=== PATIENT | male | born 1945 | race Caucasian/White ===

== ENCOUNTER 2017-10-14 09:24 | Inpatient (IN) | payer OTHER, MEDICAID ==
[2017-10-14 12:20] LABS: ADD MAN DIFF? NO
[2017-10-14 12:22] LABS: ABNORMAL IP MESSAGE 1; BASOPHIL # 0.1 10^3/ul (0.0-0.1); BASOPHILS % 0.5 % (0.0-2.0); EOSINOPHILS # 0.1 10^3/ul (0.0-0.5); EOSINOPHILS % 0.4 % (0.0-7.0); HEMATOCRIT 38.9 % (42.0-52.0); HEMOGLOBIN 12.4 g/dl (14.0-18.0); LYMPHOCYTES # 0.8 10^3/ul (0.8-2.9); LYMPHOCYTES % 3.3 % (15.0-51.0); MEAN CORPUSCULAR HEMOGLOBIN 26.1 pg (29.0-33.0); MEAN CORPUSCULAR HGB CONC 31.9 g/dl (32.0-37.0); MEAN CORPUSCULAR VOLUME 81.7 fl (82.0-101.0); MEAN PLATELET VOLUME 9.2 fl (7.4-10.4); MONOCYTE # 1.4 10^3/ul (0.3-0.9); MONOCYTES % 5.7 % (0.0-11.0); NEUTROPHIL # 20.9 10^3/ul (1.6-7.5); NEUTROPHILS % 86.3 % (39.0-77.0); PLATELET COUNT 609 10^3/UL (140-415); POSITIVE DIFF @See below; RED BLOOD COUNT 4.76 10^6/ul (4.70-6.10); RED CELL DISTRIBUTION WIDTH 15.1 % (11.5-14.5)
[2017-10-14 12:22] LABS: WHITE BLOOD COUNT 24.2 10^3/ul (4.8-10.8)
[2017-10-14] MEDS: HYDROmorphONE 1 MG/ML SYG IV ×3 (12:33→16:09)
[2017-10-14] MEDS: SOD CHLORIDE 0.9% 1,000 ML IV (12:33)
[2017-10-14 12:46] LABS: ALANINE AMINOTRANSFERASE 42 IU/L (13-69); ALBUMIN 2.8 g/dl (3.3-4.9); ALBUMIN/GLOBULIN RATIO 0.71; ALKALINE PHOSPHATASE 172 IU/L (42-121); ANION GAP 13 (8-16); ASPARTATE AMINO TRANSFERASE 85 IU/L (15-46); BILIRUBIN,INDIRECT 0.1 mg/dl (0-1.1); BILIRUBIN,TOTAL 0.1 mg/dl (0.2-1.3); BLOOD UREA NITROGEN 19 mg/dl (7-20); CALCIUM 8.9 mg/dl (8.4-10.2); CARBON DIOXIDE 29 mmol/L (21-31); CHLORIDE 93 mmol/L (97-110); CREATININE 1.23 mg/dl (0.61-1.24); GLUCOSE 169 mg/dl (70-220); LIPASE 22 U/L (23-300); POTASSIUM 5.4 mmol/L (3.5-5.1); SODIUM 130 mmol/L (135-144); TOTAL PROTEIN 6.7 g/dl (6.1-8.1)
[2017-10-14 13:02] LABS: ADD UMIC YES; UR ASCORBIC ACID 40 mg/dL (NEGATIVE); UR BILIRUBIN (Dip) NEGATIVE (NEGATIVE); UR BLOOD (Dip) NEGATIVE (NEGATIVE); UR CLARITY SLIGHTLY CLOUDY (CLEAR); UR COLOR AMBER (YELLOW); UR GLUCOSE (Dip) NEGATIVE (NEGATIVE); UR KETONES (Dip) NEGATIVE (NEGATIVE); UR LEUKOCYTE ESTERASE (Dip) NEGATIVE Leu/ul (NEGATIVE); UR MUCUS FEW /HPF (NONE SEEN); UR NITRITE (Dip) NEGATIVE (NEGATIVE); UR RBC 3 /HPF (0-5); UR SPECIFIC GRAVITY (Dip) 1.023 (1.003-1.030); UR TOTAL PROTEIN (Dip) 1+ mg/dl (NEGATIVE); UR UROBILINOGEN (Dip) 2+ mg/dL (NEGATIVE); UR WBC 3 /HPF (0-5)
[2017-10-14 13:34] LABS: INR 1.13; PROTIME 14.7 Sec (11.9-14.9); PT RATIO 1.1
[2017-10-14 13:35] LABS: PARTIAL THROMBOPLASTIN TIME 32.5 Sec (25.0-35.0)
[2017-10-14 13:56] LABS: LACTIC ACID 2.9 mmol/L (0.5-2.0)
[2017-10-14] MEDS: ONDANSETRON 4 MG INJ IV (13:57)
[2017-10-14] MEDS: SODIUM CHLORIDE 0.9% 1L BAG IV* (13:57)
[2017-10-14 13:58] LABS: LACTATE DEHYDROGENASE 5902 IU/L (313-618)
[2017-10-14] MEDS: SOD CHLORIDE 0.9% 500 ML IV (14:00)
[2017-10-14] MEDS ORDERED: ACETAMINOPHEN 325 MG TAB PO (14:00)
[2017-10-14 18:19] LABS: LACTIC ACID 1.9 mmol/L (0.5-2.0)
[2017-10-14] MEDS: DOCUSATE SODIUM 250 MG CAP PO (18:34)
[2017-10-14] MEDS: POLYETHYLENE GLYCOL 17 GM PACKET PO (18:34)
[2017-10-14] MEDS: DEXTROSE 5%-0.45% NACL 1,000 ML IV (18:34)
[2017-10-14 18:37] LABS: HAAIG REFLEX REFLEX FILED
[2017-10-14 19:14] LABS: ERYTHROCYTE SEDIMENTATION RATE 73 mm/Hr (0-20)
[2017-10-14 19:15] LABS: URIC ACID 5.5 mg/dl (3.1-7.9)
[2017-10-14 20:00] LABS: HEPATITIS B SURFACE ANTIGEN NEGATIVE (NEGATIVE)
[2017-10-14 20:17] LABS: HEPATITIS B CORE ANTIBODY NEGATIVE (NEGATIVE); HEPATITIS C VIRAL ANTIBODY NEGATIVE (NEGATIVE)
[2017-10-14 20:19] LABS: HIV 1&2 ANTIBODY NEGATIVE (NEGATIVE)
[2017-10-14 23:21] LABS: HAAIG REFLEX REFLEX FILED
[2017-10-14] MEDS: NA POLYST SULFON 15 GM/60 ML BTL PO (23:33)
[2017-10-14 23:50] LABS: LACTIC ACID 1.4 mmol/L (0.5-2.0)
[2017-10-14 23:53] LABS: URIC ACID 4.8 mg/dl (3.1-7.9)
[2017-10-15] LABS: LACTATE DEHYDROGENASE 5200 IU/L (313-618)
[2017-10-15 00:24] LABS: HEPATITIS B SURFACE ANTIGEN NEGATIVE (NEGATIVE)
[2017-10-15 00:42] LABS: HEPATITIS B CORE ANTIBODY NEGATIVE (NEGATIVE); HEPATITIS C VIRAL ANTIBODY NEGATIVE (NEGATIVE)
[2017-10-15] MEDS: DEXTROSE 5%-0.45% NACL 1,000 ML IV ×2 (05:30→08:37)
[2017-10-15] MEDS: morphine LIQ (10 MG/5 ML) CUP PO ×3 (06:20→16:41)
[2017-10-15 06:51] LABS: ABNORMAL IP MESSAGE 1; HEMATOCRIT 33.3 % (42.0-52.0); HEMOGLOBIN 10.6 g/dl (14.0-18.0); MEAN CORPUSCULAR HEMOGLOBIN 26.2 pg (29.0-33.0); MEAN CORPUSCULAR HGB CONC 31.8 g/dl (32.0-37.0); MEAN CORPUSCULAR VOLUME 82.2 fl (82.0-101.0); MEAN PLATELET VOLUME 9.6 fl (7.4-10.4); PLATELET COUNT 639 10^3/UL (140-415); POSITIVE DIFF @See below; RED BLOOD COUNT 4.05 10^6/ul (4.70-6.10); RED CELL DISTRIBUTION WIDTH 15.4 % (11.5-14.5)
[2017-10-15 06:57] LABS: ADD MAN DIFF? YES
[2017-10-15 07:30] LABS: HEMOGLOBIN A1C 6.3 % (0-5.9)
[2017-10-15 07:34] LABS: INR 1.22; PROTIME 15.6 Sec (11.9-14.9); PT RATIO 1.2
[2017-10-15 07:35] LABS: PARTIAL THROMBOPLASTIN TIME 36.9 Sec (25.0-35.0)
[2017-10-15 07:39] LABS: ALANINE AMINOTRANSFERASE 36 IU/L (13-69); ALBUMIN 2.4 g/dl (3.3-4.9); ALKALINE PHOSPHATASE 155 IU/L (42-121); ANION GAP 15 (8-16); ASPARTATE AMINO TRANSFERASE 66 IU/L (15-46); BILIRUBIN,INDIRECT 0.1 mg/dl (0-1.1); BILIRUBIN,TOTAL 0.1 mg/dl (0.2-1.3); BLOOD UREA NITROGEN 16 mg/dl (7-20); CALCIUM 8.3 mg/dl (8.4-10.2); CARBON DIOXIDE 26 mmol/L (21-31); CHLORIDE 99 mmol/L (97-110); CREATININE 1.09 mg/dl (0.61-1.24); GLUCOSE 148 mg/dl (70-220); MAGNESIUM 1.9 mg/dl (1.7-2.5); SODIUM 135 mmol/L (135-144); TOTAL PROTEIN 5.8 g/dl (6.1-8.1)
[2017-10-15 07:45] LABS: POTASSIUM 5.4 mmol/L (3.5-5.1)
[2017-10-15 08:08] LABS: BAND NEUTROPHILS #M 4.8 10^3/ul (0.0-0.6); BAND NEUTROPHILS % (M) 16 % (0-4); BASOPHIL #M 0.3 10^3/ul (0.0-0.0); BASOPHILS % (M) 1 % (0-2); LYMPHOCYTES #M 1.8 10^3/ul (0.8-2.9); LYMPHOCYTES % (M) 6 % (15-51); MONOCYTE #M 2.4 10^3/ul (0.3-0.9); MONOCYTES % (M) 8 % (0-11); PLATELET ESTIMATE INCREASED; POLYCHROMASIA 3+ (0-0); SEG NEUT #M 22.4 10^3/ul (1.7-7.5); SEGMENTED NEUTROPHILS (M) % 70 % (39-77); SMUDGE%M 4 % (0-0)
[2017-10-15] MEDS: POLYETHYLENE GLYCOL 17 GM PACKET PO (08:38)
[2017-10-15] MEDS: DOCUSATE SODIUM 250 MG CAP PO (08:39)
[2017-10-15] MEDS: NA POLYST SULFON 15 GM/60 ML BTL PR (12:16)
[2017-10-15] MEDS ORDERED: BISACODYL 10 MG SUPP PR (18:00)
[2017-10-16] MEDS: BISACODYL 10 MG SUPP PR ×2 (00:18→12:21)
[2017-10-16] MEDS: NA PHOSPHATE/BIPHOS 133 ML ENEMA PR (05:34)
[2017-10-16] MEDS: DEXTROSE 5%-0.45% NACL 1,000 ML IV ×2 (05:35→22:37)
[2017-10-16 06:09] LABS: WHITE BLOOD COUNT 24.3 10^3/ul (4.8-10.8)
[2017-10-16 06:09] LABS: ABNORMAL IP MESSAGE 1; HEMATOCRIT 27.5 % (42.0-52.0); HEMOGLOBIN 8.9 g/dl (14.0-18.0); MEAN CORPUSCULAR HGB CONC 32.4 g/dl (32.0-37.0); MEAN CORPUSCULAR VOLUME 80.4 fl (82.0-101.0); MEAN PLATELET VOLUME 9.4 fl (7.4-10.4); PLATELET COUNT 490 10^3/UL (140-415); POSITIVE DIFF @See below; RED BLOOD COUNT 3.42 10^6/ul (4.70-6.10); RED CELL DISTRIBUTION WIDTH 15.4 % (11.5-14.5)
[2017-10-16 06:24] LABS: ADD MAN DIFF? YES
[2017-10-16 07:11] LABS: ANION GAP 12 (8-16); BLOOD UREA NITROGEN 15 mg/dl (7-20); CALCIUM 7.7 mg/dl (8.4-10.2); CARBON DIOXIDE 28 mmol/L (21-31); CHLORIDE 98 mmol/L (97-110); CREATININE 0.97 mg/dl (0.61-1.24); GLUCOSE 117 mg/dl (70-220); POTASSIUM 3.4 mmol/L (3.5-5.1); SODIUM 135 mmol/L (135-144)
[2017-10-16] MEDS: POLYETHYLENE GLYCOL 17 GM PACKET PO (08:51)
[2017-10-16] MEDS: DOCUSATE SODIUM 250 MG CAP PO (08:52)
[2017-10-16 09:16] LABS: BAND NEUTROPHILS #M 3.8 10^3/ul (0.0-0.6); BAND NEUTROPHILS % (M) 16 % (0-4); BASOPHIL #M 0.2 10^3/ul (0.0-0.0); BASOPHILS % (M) 1 % (0-2); LYMPHOCYTES #M 0.4 10^3/ul (0.8-2.9); LYMPHOCYTES % (M) 2 % (15-51); METAMYELOCYTES #M 0.4 10^3/ul (0.0-0.0); METAMYELOCYTES %M 2 % (0-0); MONOCYTE #M 1.7 10^3/ul (0.3-0.9); MONOCYTES % (M) 7 % (0-11); PLATELET ESTIMATE INCREASED; POIKILOCYTOSIS 1+ (0-0); POLYCHROMASIA 3+ (0-0); SEG NEUT #M 18.4 10^3/ul (1.7-7.5); SEGMENTED NEUTROPHILS (M) % 72 % (39-77); SMUDGE%M 1 % (0-0)
[2017-10-16] MEDS: ENOXAPARIN 40 MG/0.4 ML SYG SC (09:30)
[2017-10-16 10:51] LABS: HAPTOGLOBIN 361 mg/dL (43-212)
[2017-10-16] MEDS: LIDOCAINE 1% (MDV) 20 ML INJ (15:51)
[2017-10-16] MEDS ORDERED: NA PHOSPHATE/BIPHOS 133 ML ENEMA PR (16:00)
[2017-10-16] MEDS: ONDANSETRON 4 MG INJ IV (22:53)
[2017-10-17] MEDS ORDERED: BISACODYL 10 MG SUPP PR
[2017-10-17] MEDS: ONDANSETRON 4 MG INJ IV ×2 (03:55→17:17)
[2017-10-17 05:51] LABS: ADD MAN DIFF? NO
[2017-10-17 05:59] LABS: ABNORMAL IP MESSAGE 1; BASOPHIL # 0.1 10^3/ul (0.0-0.1); BASOPHILS % 0.2 % (0.0-2.0); HEMATOCRIT 27.3 % (42.0-52.0); LYMPHOCYTES % 4.8 % (15.0-51.0); MEAN CORPUSCULAR HEMOGLOBIN 26.1 pg (29.0-33.0); MEAN CORPUSCULAR VOLUME 79.1 fl (82.0-101.0); MEAN PLATELET VOLUME 9.5 fl (7.4-10.4); MONOCYTE # 1.5 10^3/ul (0.3-0.9); NEUTROPHIL # 16.6 10^3/ul (1.6-7.5); PLATELET COUNT 479 10^3/UL (140-415); POSITIVE DIFF @See below; RED BLOOD COUNT 3.45 10^6/ul (4.70-6.10); RED CELL DISTRIBUTION WIDTH 15.5 % (11.5-14.5)
[2017-10-17 06:37] LABS: ANION GAP 10 (8-16); BLOOD UREA NITROGEN 15 mg/dl (7-20); CALCIUM 7.8 mg/dl (8.4-10.2); CARBON DIOXIDE 31 mmol/L (21-31); CHLORIDE 99 mmol/L (97-110); GLUCOSE 142 mg/dl (70-220); SODIUM 137 mmol/L (135-144)
[2017-10-17 06:58] LABS: POTASSIUM 2.5 mmol/L (3.5-5.1)
[2017-10-17] MEDS: DEXTROSE 5%-0.45% NACL 1,000 ML IV ×2 (07:30→21:11)
[2017-10-17] MEDS ORDERED: POTASSIUM CHLORIDE 40 MEQ in SOD CHLORIDE 0.9% 150 ML IVPB ×2 (07:30→11:30)
[2017-10-17] MEDS: POTASSIUM CHLORIDE 250 ML IVPB ×2 (08:14→13:16)
[2017-10-17] MEDS: ENOXAPARIN 40 MG/0.4 ML SYG SC (08:16)
[2017-10-17] MEDS: POLYETHYLENE GLYCOL 17 GM PACKET PO (08:18)
[2017-10-17] MEDS: ALLOPURINOL 300 MG TAB PO (08:18)
[2017-10-17] MEDS: DOCUSATE SODIUM 250 MG CAP PO (08:18)
[2017-10-17 11:16] LABS: INR 1.35; PROTIME 16.9 Sec (11.9-14.9); PT RATIO 1.3
[2017-10-17 11:17] LABS: PARTIAL THROMBOPLASTIN TIME 41.7 Sec (25.0-35.0)
[2017-10-17 19:33] LABS: ANION GAP 11 (8-16); BLOOD UREA NITROGEN 18 mg/dl (7-20); CALCIUM 7.6 mg/dl (8.4-10.2); CARBON DIOXIDE 29 mmol/L (21-31); CHLORIDE 101 mmol/L (97-110); CREATININE 0.98 mg/dl (0.61-1.24); GLUCOSE 126 mg/dl (70-220); POTASSIUM 3.6 mmol/L (3.5-5.1); SODIUM 137 mmol/L (135-144)
[2017-10-18] MEDS: ONDANSETRON 4 MG INJ IV ×2 (01:35→20:40)
[2017-10-18] MEDS: ALLOPURINOL 300 MG TAB PO (09:00)
[2017-10-18] MEDS: POLYETHYLENE GLYCOL 17 GM PACKET PO (09:00)
[2017-10-18] MEDS: DOCUSATE SODIUM 250 MG CAP PO (09:00)
[2017-10-18] MEDS: CEFAZOLIN 1 GM/50 ML (PMX) 50 ML IVPB ×2 (09:33→10:00)
[2017-10-18] MEDS: DIPHENHYDRAMINE 50 MG INJ (10:33)
[2017-10-18] MEDS: FENTAnyl 50 MCG/ML VIAL (10:45)
[2017-10-18] MEDS: HEPARIN 1000 UNITS/ML 10 ML INJ (11:04)
[2017-10-18] MEDS: POLYMYXIN/BACITRACIN 1L IRRIG IRR (11:05)
[2017-10-18] MEDS: SOD CHLORIDE 0.9% 1,000 ML IV (12:15)
[2017-10-18] MEDS: ZOLPIDEM 5 MG TAB PO (23:19)
[2017-10-19 05:40] LABS: ABNORMAL IP MESSAGE 1; POSITIVE DIFF @See below
[2017-10-19 06:01] LABS: WHITE BLOOD COUNT 22.1 10^3/ul (4.8-10.8)
[2017-10-19 06:02] LABS: HEMATOCRIT 27.6 % (42.0-52.0); HEMOGLOBIN 8.9 g/dl (14.0-18.0); MEAN CORPUSCULAR HEMOGLOBIN 26.2 pg (29.0-33.0); MEAN CORPUSCULAR HGB CONC 32.2 g/dl (32.0-37.0); MEAN CORPUSCULAR VOLUME 81.2 fl (82.0-101.0); MEAN PLATELET VOLUME 9.8 fl (7.4-10.4); NUCLEATED RED BLOOD CELLS% 0.2 /100WBC (0.0-0.0); PLATELET COUNT 381 10^3/UL (140-415); RED CELL DISTRIBUTION WIDTH 15.7 % (11.5-14.5)
[2017-10-19 06:03] LABS: ADD MAN DIFF? YES
[2017-10-19 06:08] LABS: ALANINE AMINOTRANSFERASE 33 IU/L (13-69); ALBUMIN 1.9 g/dl (3.3-4.9); ALBUMIN/GLOBULIN RATIO 0.59; ALKALINE PHOSPHATASE 108 IU/L (42-121); ANION GAP 8 (8-16); ASPARTATE AMINO TRANSFERASE 63 IU/L (15-46); BILIRUBIN,INDIRECT 0.1 mg/dl (0-1.1); BILIRUBIN,TOTAL 0.1 mg/dl (0.2-1.3); BLOOD UREA NITROGEN 22 mg/dl (7-20); CALCIUM 7.5 mg/dl (8.4-10.2); CARBON DIOXIDE 29 mmol/L (21-31); CHLORIDE 105 mmol/L (97-110); CREATININE 1.04 mg/dl (0.61-1.24); GLUCOSE 106 mg/dl (70-220); SODIUM 139 mmol/L (135-144); TOTAL PROTEIN 5.1 g/dl (6.1-8.1); URIC ACID 6.2 mg/dl (3.1-7.9)
[2017-10-19 06:13] LABS: POTASSIUM 2.9 mmol/L (3.5-5.1)
[2017-10-19 06:16] LABS: LACTATE DEHYDROGENASE 3999 IU/L (313-618)
[2017-10-19] MEDS: POTASSIUM CHLORIDE (SR) 20 MEQ TAB PO ×2 (06:31→10:32)
[2017-10-19] MEDS: POLYETHYLENE GLYCOL 17 GM PACKET PO (08:49)
[2017-10-19] MEDS: DOCUSATE SODIUM 250 MG CAP PO (08:49)
[2017-10-19] MEDS: ALLOPURINOL 300 MG TAB PO (08:49)
[2017-10-19 11:20] LABS: ANISOCYTOSIS 1+ (0-0); BAND NEUTROPHILS #M 2.6 10^3/ul (0.0-0.6); BAND NEUTROPHILS % (M) 12 % (0-4); HYPOCHROMASIA 1+ (0-0); LYMPHOCYTES #M 1.5 10^3/ul (0.8-2.9); LYMPHOCYTES % (M) 7 % (15-51); METAMYELOCYTES #M 0.6 10^3/ul (0.0-0.0); METAMYELOCYTES %M 3 % (0-0); MICROCYTOSIS 1+ (0-0); MONOCYTE #M 1.7 10^3/ul (0.3-0.9); MONOCYTES % (M) 8 % (0-11); MYELOCYTES #M 0.8 10^3/ul (0.0-0.0); MYELOCYTES % (M) 4 % (0-0); PLATELET ESTIMATE NORMAL; POLYCHROMASIA 3+ (0-0); PROMYELOCYTES #M 0.4 10^3/ul (0-0); PROMYELOCYTES % (M) 2 % (0-0); SEG NEUT #M 14.7 10^3/ul (1.7-7.5); SEGMENTED NEUTROPHILS (M) % 64 % (39-77)
[2017-10-19] MEDS: SOD CHLORIDE 0.9% 1,000 ML IV (17:39)
[2017-10-19] MEDS: ENOXAPARIN 40 MG/0.4 ML SYG SC (17:40)
[2017-10-19] MEDS: ONDANSETRON 4 MG INJ IV ×2 (18:22→22:30)
[2017-10-19] MEDS: DEXAMETHASONE 10 MG/ML 1 ML INJ IV (20:19)
[2017-10-19] MEDS: DIPHENHYDRAMINE 50 MG INJ IV (20:19)
[2017-10-19] MEDS: ACETAMINOPHEN 325 MG TAB PO (20:19)
[2017-10-19] MEDS: RITUXIMAB IV (20:55)
[2017-10-19] MEDS: SOD CHLORIDE 0.9% IV (20:55)
[2017-10-19] MEDS ORDERED: DIPHENHYDRAMINE 50 MG INJ IV (22:00)
[2017-10-19] MEDS: METHYLPREDNISOLONE 125 MG INJ IV (22:34)
[2017-10-19] MEDS: MEPERIDINE 50 MG INJ IV (22:35)
[2017-10-20] MEDS: SOD CHLORIDE 0.9% 1,000 ML IV ×3 (02:59→23:00)
[2017-10-20] MEDS: DOCUSATE SODIUM 250 MG CAP PO (10:24)
[2017-10-20] MEDS: POLYETHYLENE GLYCOL 17 GM PACKET PO (10:24)
[2017-10-20] MEDS: ALLOPURINOL 300 MG TAB PO (10:24)
[2017-10-20] MEDS: ENOXAPARIN 40 MG/0.4 ML SYG SC (10:32)
[2017-10-20 12:19] LABS: WHITE BLOOD COUNT 30.8 10^3/ul (4.8-10.8)
[2017-10-20 12:19] LABS: ABNORMAL IP MESSAGE 1; HEMATOCRIT 30.7 % (42.0-52.0); HEMOGLOBIN 9.5 g/dl (14.0-18.0); MEAN CORPUSCULAR HGB CONC 30.9 g/dl (32.0-37.0); MEAN CORPUSCULAR VOLUME 84.1 fl (82.0-101.0); MEAN PLATELET VOLUME 10.2 fl (7.4-10.4); PLATELET COUNT 310 10^3/UL (140-415); POSITIVE DIFF @See below; RED BLOOD COUNT 3.65 10^6/ul (4.70-6.10); RED CELL DISTRIBUTION WIDTH 15.8 % (11.5-14.5)
[2017-10-20 12:38] LABS: ADD MAN DIFF? YES
[2017-10-20 12:45] LABS: ALANINE AMINOTRANSFERASE 36 IU/L (13-69); ALBUMIN 1.9 g/dl (3.3-4.9); ALBUMIN/GLOBULIN RATIO 0.59; ALKALINE PHOSPHATASE 106 IU/L (42-121); ANION GAP 12 (8-16); ASPARTATE AMINO TRANSFERASE 79 IU/L (15-46); BILIRUBIN,INDIRECT 0.1 mg/dl (0-1.1); BILIRUBIN,TOTAL 0.1 mg/dl (0.2-1.3); BLOOD UREA NITROGEN 23 mg/dl (7-20); CALCIUM 7.2 mg/dl (8.4-10.2); CARBON DIOXIDE 24 mmol/L (21-31); CHLORIDE 107 mmol/L (97-110); CREATININE 0.91 mg/dl (0.61-1.24); GLUCOSE 183 mg/dl (70-220); POTASSIUM 3.9 mmol/L (3.5-5.1); SODIUM 139 mmol/L (135-144); TOTAL PROTEIN 5.1 g/dl (6.1-8.1); URIC ACID 3.7 mg/dl (3.1-7.9)
[2017-10-20 13:28] LABS: LACTATE DEHYDROGENASE 7572 IU/L (313-618)
[2017-10-20 14:20] LABS: ANISOCYTOSIS 1+ (0-0); BAND NEUTROPHILS #M 5.2 10^3/ul (0.0-0.6); BAND NEUTROPHILS % (M) 17 % (0-4); BURR CELLS 1+ (0-0); GIANT THROMBO% (M) 1 % (0-0); LYMPHOCYTES #M 0.6 10^3/ul (0.8-2.9); LYMPHOCYTES % (M) 2 % (15-51); MICROCYTOSIS 1+ (0-0); MONOCYTE #M 0.3 10^3/ul (0.3-0.9); MONOCYTES % (M) 1 % (0-11); MYELOCYTES #M 0.6 10^3/ul (0.0-0.0); MYELOCYTES % (M) 2 % (0-0); PLATELET ESTIMATE NORMAL; POIKILOCYTOSIS 1+ (0-0); POLYCHROMASIA 1+ (0-0); REACTIVE LYMPHOCYTES #M 1.5 10^3/ul (0.0-0.0); REACTIVE LYMPHOCYTES% (M) 5 % (0-0); SEG NEUT #M 24.1 10^3/ul (1.7-7.5); SEGMENTED NEUTROPHILS (M) % 73 % (39-77); SMUDGE%M 2 % (0-0)
[2017-10-20] MEDS: ONDANSETRON 4 MG INJ IV (15:04)
[2017-10-20] MEDS: FILGRASTIM 480 MCG INJ SC (17:35)
[2017-10-20] MEDS: predniSONE 50 MG TAB PO (21:26)
[2017-10-20] MEDS: DIPHENHYDRAMINE 50 MG INJ IV (22:54)
[2017-10-20] MEDS: ONDANSETRON INJ 16 MG, DEXAMETHASONE 4 MG/ML 10 MG in SOD CHLORIDE 0.9% 50 ML IV (22:54)
[2017-10-20] MEDS ORDERED: METHYLPREDNISOLONE 40 MG INJ IV (23:00)
[2017-10-20] MEDS ORDERED: DIPHENHYDRAMINE 50 MG INJ IV (23:00)
[2017-10-20] MEDS: CYCLOPHOSPHAMIDE IV (23:52)
[2017-10-20] MEDS: SOD CHLORIDE 0.9% IV (23:52)
[2017-10-21] MEDS: SOD CHLORIDE 0.9% IV (03:46)
[2017-10-21] MEDS: DOXORUBICIN IV (03:46)
[2017-10-21] MEDS: SOD CHLORIDE 0.9% 1,000 ML IV ×2 (03:48→09:00)
[2017-10-21] MEDS: vinCRISTine 2 MG in SOD CHLORIDE 0.9% 50 ML IV (05:39)
[2017-10-21 05:41] LABS: WHITE BLOOD COUNT 51.8 10^3/ul (4.8-10.8)
[2017-10-21 05:41] LABS: ABNORMAL IP MESSAGE 1; HEMATOCRIT 30.5 % (42.0-52.0); HEMOGLOBIN 9.6 g/dl (14.0-18.0); MEAN CORPUSCULAR HEMOGLOBIN 26.3 pg (29.0-33.0); MEAN CORPUSCULAR HGB CONC 31.5 g/dl (32.0-37.0); MEAN CORPUSCULAR VOLUME 83.6 fl (82.0-101.0); MEAN PLATELET VOLUME 10.1 fl (7.4-10.4); PLATELET COUNT 259 10^3/UL (140-415); POSITIVE DIFF @See below; RED BLOOD COUNT 3.65 10^6/ul (4.70-6.10); RED CELL DISTRIBUTION WIDTH 15.9 % (11.5-14.5)
[2017-10-21 05:54] LABS: ADD MAN DIFF? YES
[2017-10-21 06:22] LABS: ALANINE AMINOTRANSFERASE 33 IU/L (13-69); ALBUMIN 1.8 g/dl (3.3-4.9); ALBUMIN/GLOBULIN RATIO 0.72; ALKALINE PHOSPHATASE 95 IU/L (42-121); ANION GAP 10 (8-16); ASPARTATE AMINO TRANSFERASE 50 IU/L (15-46); BLOOD UREA NITROGEN 23 mg/dl (7-20); CALCIUM 7.2 mg/dl (8.4-10.2); CARBON DIOXIDE 23 mmol/L (21-31); CHLORIDE 110 mmol/L (97-110); CREATININE 0.88 mg/dl (0.61-1.24); GLUCOSE 144 mg/dl (70-220); SODIUM 139 mmol/L (135-144); TOTAL PROTEIN 4.3 g/dl (6.1-8.1); URIC ACID 2.8 mg/dl (3.1-7.9)
[2017-10-21 06:30] LABS: LACTATE DEHYDROGENASE 5132 IU/L (313-618)
[2017-10-21] MEDS: DOCUSATE SODIUM 100 MG CAP PO (09:00)
[2017-10-21] MEDS: ALLOPURINOL 300 MG TAB PO (09:16)
[2017-10-21] MEDS: POLYETHYLENE GLYCOL 17 GM PACKET PO (09:18)
[2017-10-21] MEDS: ENOXAPARIN 40 MG/0.4 ML SYG SC (09:31)
[2017-10-21 09:44] LABS: ANISOCYTOSIS 2+ (0-0); BAND NEUTROPHILS #M 8.2 10^3/ul (0.0-0.6); BAND NEUTROPHILS % (M) 16 % (0-4); MICROCYTOSIS 2+ (0-0); MONOCYTE #M 0.5 10^3/ul (0.3-0.9); MONOCYTES % (M) 1 % (0-11); PLATELET ESTIMATE NORMAL; POIKILOCYTOSIS 2+ (0-0); POLYCHROMASIA 3+ (0-0); SEG NEUT #M 47.2 10^3/ul (1.7-7.5); SEGMENTED NEUTROPHILS (M) % 83 % (39-77); SMUDGE%M 2 % (0-0)
[2017-10-21] MEDS: ONDANSETRON 4 MG INJ IV ×2 (13:21→21:56)
[2017-10-21] MEDS: FILGRASTIM 480 MCG INJ SC (17:43)
[2017-10-21] MEDS: predniSONE 50 MG TAB PO (21:50)
[2017-10-21] MEDS: ZOLPIDEM 5 MG TAB PO (21:56)
[2017-10-22] MEDS: ONDANSETRON 4 MG INJ IV ×2 (05:50→15:53)
[2017-10-22 05:51] LABS: ALANINE AMINOTRANSFERASE 28 IU/L (13-69); ALBUMIN 2.2 g/dl (3.3-4.9); ALKALINE PHOSPHATASE 132 IU/L (42-121); ANION GAP 13 (8-16); ASPARTATE AMINO TRANSFERASE 38 IU/L (15-46); BILIRUBIN,INDIRECT 0.1 mg/dl (0-1.1); BILIRUBIN,TOTAL 0.1 mg/dl (0.2-1.3); BLOOD UREA NITROGEN 23 mg/dl (7-20); CALCIUM 7.7 mg/dl (8.4-10.2); CARBON DIOXIDE 24 mmol/L (21-31); CHLORIDE 108 mmol/L (97-110); CREATININE 0.87 mg/dl (0.61-1.24); GLUCOSE 157 mg/dl (70-220); SODIUM 141 mmol/L (135-144); TOTAL PROTEIN 5.3 g/dl (6.1-8.1); URIC ACID 2.2 mg/dl (3.1-7.9)
[2017-10-22 06:33] LABS: LACTATE DEHYDROGENASE 4205 IU/L (313-618)
[2017-10-22] MEDS ORDERED: PHENOL 1.4% SOLN 180 ML BTL MT (07:30)
[2017-10-22] MEDS ORDERED: NYSTATIN SUSP 5 ML CUP PO (09:00)
[2017-10-22] MEDS: DOCUSATE SODIUM 100 MG CAP PO (11:31)
[2017-10-22] MEDS: ALLOPURINOL 300 MG TAB PO (11:31)
[2017-10-22] MEDS: POLYETHYLENE GLYCOL 17 GM PACKET PO (11:32)
[2017-10-22] MEDS: ENOXAPARIN 40 MG/0.4 ML SYG SC (11:41)
[2017-10-22] MEDS: FILGRASTIM 480 MCG INJ SC (18:08)
[2017-10-22] MEDS: FUROSEMIDE 40 MG TAB PO (18:08)
[2017-10-22] MEDS: predniSONE 50 MG TAB PO (21:10)
[2017-10-22] MEDS: ZOLPIDEM 5 MG TAB PO (23:06)
[2017-10-23] MEDS: FUROSEMIDE 40 MG TAB PO ×2 (05:49→18:01)
[2017-10-23 06:07] LABS: ALANINE AMINOTRANSFERASE 27 IU/L (13-69); ALBUMIN/GLOBULIN RATIO 0.68; ALKALINE PHOSPHATASE 128 IU/L (42-121); ANION GAP 12 (8-16); ASPARTATE AMINO TRANSFERASE 24 IU/L (15-46); BILIRUBIN,INDIRECT 0.1 mg/dl (0-1.1); BILIRUBIN,TOTAL 0.1 mg/dl (0.2-1.3); BLOOD UREA NITROGEN 25 mg/dl (7-20); CALCIUM 7.9 mg/dl (8.4-10.2); CARBON DIOXIDE 24 mmol/L (21-31); CHLORIDE 108 mmol/L (97-110); CREATININE 0.87 mg/dl (0.61-1.24); GLUCOSE 166 mg/dl (70-220); POTASSIUM 3.8 mmol/L (3.5-5.1); SODIUM 140 mmol/L (135-144); TOTAL PROTEIN 4.9 g/dl (6.1-8.1); URIC ACID 1.8 mg/dl (3.1-7.9)
[2017-10-23] MEDS: DOCUSATE SODIUM 100 MG CAP PO (09:52)
[2017-10-23] MEDS: POLYETHYLENE GLYCOL 17 GM PACKET PO (09:52)
[2017-10-23] MEDS: ALLOPURINOL 300 MG TAB PO (09:52)
[2017-10-23] MEDS: ENOXAPARIN 40 MG/0.4 ML SYG SC (09:57)
[2017-10-23] MEDS: ONDANSETRON 4 MG INJ IV (09:59)
[2017-10-23] MEDS: FILGRASTIM 480 MCG INJ SC (18:02)
[2017-10-23] MEDS: predniSONE 50 MG TAB PO (21:40)
[2017-10-24] MEDS: ONDANSETRON 4 MG INJ IV (03:13)
[2017-10-24] MEDS: FUROSEMIDE 40 MG TAB PO (06:09)
[2017-10-24] MEDS: ENOXAPARIN 40 MG/0.4 ML SYG SC (09:00)
[2017-10-24] MEDS: DOCUSATE SODIUM 100 MG CAP PO (09:39)
[2017-10-24] MEDS: POLYETHYLENE GLYCOL 17 GM PACKET PO (09:39)
[2017-10-24] MEDS: ALLOPURINOL 300 MG TAB PO (09:39)
[2017-10-24] MEDS: predniSONE 50 MG TAB PO (16:36)
[2017-10-24] MEDS: FILGRASTIM 480 MCG INJ SC (16:37)
[2017-10-24] MEDS: HEPARIN (100 UNITS/ML) 5 ML SYG CATHETER (17:08)
== END 2017-10-24 17:15 | disposition home health service (06) | DRG 824 ==
LOC: MS1 10-18 11:45 → E/R 09:24 → PP2 13:53
PROVIDERS: Family Medicine
PROC: 07BJ3ZX Excision of Left Inguinal Lymphatic, Percutaneous Approach, Diagnostic (ICD-10-PCS; principal; 2017-10-16)
PROC: 0JH63WZ Insertion of Totally Implantable Vascular Access Device into Chest Subcutaneous Tissue and Fascia, Percutaneous Approach (ICD-10-PCS; 2017-10-18)
PROC: 05HM33Z Insertion of Infusion Device into Right Internal Jugular Vein, Percutaneous Approach (ICD-10-PCS; 2017-10-18)
PROC: B513ZZA Fluoroscopy of Right Jugular Veins, Guidance (ICD-10-PCS; 2017-10-18)
PROC: B543ZZA Ultrasonography of Right Jugular Veins, Guidance (ICD-10-PCS; 2017-10-18)
PROC: 3E04305 Introduction of Other Antineoplastic into Central Vein, Percutaneous Approach (ICD-10-PCS; 2017-10-19)
DX: C83.35 Diffuse large B-cell lymphoma, lymph nodes of inguinal region and lower limb (principal); E87.1 Hypo-osmolality and hyponatremia; E87.2 Acidosis; E11.9 Type 2 diabetes mellitus without complications; I10 Essential (primary) hypertension; D50.9 Iron deficiency anemia, unspecified; D72.829 Elevated white blood cell count, unspecified; E87.6 Hypokalemia; E78.00 Pure hypercholesterolemia, unspecified; K59.00 Constipation, unspecified
CPT/HCPCS: 36415; 36561; 71010; 74176; 76942; 80048; 80053; 80076; 81001; 83010; 83036; 83605; 83615; 83690; 83735; 84443; 84560; 85025; 85610; 85651; 85730; 86703; 86704; 86709; 86803; 87040; 87340; 87536; 88104; 88305; 92610; 93005; 93306; 93970; 93971; 96374; 96375; 96376; 97110; 97162; 97165; 97530; 97535; 99285-25; J9310